=== PATIENT | female | born 1955 | race Caucasian/White ===

== ENCOUNTER 2018-08-21 15:27 | Emergency (ER) | payer OTHER, SELFPAY ==
[2018-08-21 15:29] VITALS: BP 161/92; PULSE 97; RESP 16; TEMP 36.1; O2SAT 99
[2018-08-21 18:44] VITALS: BP 135/78; PULSE 76; RESP 12; TEMP 36.7; O2SAT 99
--- NOTE | 2018-08-21 19:20 | DI.RAD_ITS ---
SYMPTOM/DIAGNOSIS: FALL, FOREARM AND WRIST PAIN LEFT WRIST AND LEFT FOREARM 08/21 Three views of the wrist and two views of the forearm were obtained. There is a fracture of the distal radius with moderate comminution and moderate displacement. Nondisplaced ulnar styloid fracture is also noted. No additional fracture is seen involving the carpus or forearm.
--- NOTE | 2018-08-21 19:54 | DI.VRAD_ITS ---
EXAM: XR Left Wrist Complete, 3 or More Views CLINICAL HISTORY: 63 years old, female; Pain; Wrist; Left TECHNIQUE: Frontal, lateral and oblique views of the left wrist. COMPARISON: No relevant prior studies available. FINDINGS: Bones/joints: Acute, mildly impacted, intra-articular distal radial fracture. Nondisplaced ulnar styloid fracture. No dislocation. Soft tissues: Generalized soft tissue swelling. IMPRESSION: 1. Acute, mildly impacted, intra-articular distal radial fracture. 2. Nondisplaced ulnar styloid fracture. Dictated and Authenticated by: Erica Bejarano MD. Ordering:RUTH RUIZ MD
--- NOTE | 2018-08-21 19:54 | DI.VRAD_ITS ---
EXAM: XR Left Forearm, 2 Views CLINICAL HISTORY: 63 years old, female; Injury or trauma; Fall; Initial encounter; Blunt trauma (contusions or hematomas; Wrist; Left TECHNIQUE: Frontal and lateral views of the left forearm. COMPARISON: No relevant prior studies available. FINDINGS: Bones/joints: Acute, mildly impacted intra-articular distal radial fracture. No dislocation. Soft tissues: Distal soft tissue swelling. Other findings: Distal demineralization. IMPRESSION: Acute, mildly impacted intra-articular distal radial fracture. Dictated and Authenticated by: Erica Bejarano MD. Ordering:RUTH RUIZ MD
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
[2018-08-21 21:21] VITALS: BP 135/78; PULSE 76; RESP 12; TEMP 36.7; O2SAT 99
[2018-08-21] MEDS: HYDROcodone 5/Acetaminophen 325 TAB PO (21:22)
== END 2018-08-21 21:10 | disposition home or self-care (01) ==
PROVIDERS: Emergency Provider Nurse Practitioner Family
DX: S52.502A Unspecified fracture of the lower end of left radius, initial encounter for closed fracture (principal); S52.615A Nondisplaced fracture of left ulna styloid process, initial encounter for closed fracture; V29.9XXA Motorcycle rider (driver) (passenger) injured in unspecified traffic accident, initial encounter
CPT/HCPCS: 25600; 99284; 73090; 73110